=== PATIENT | female | born 1955 | race Caucasian/White ===

== ENCOUNTER 2022-10-04 09:25 | Inpatient (IN) ==
[~2022-10-04 09:25] MED LIST: KCL IV SCH; MAGNESIUM SULFATE IV SCH; NS IV SCH
[2022-10-04] MEDS ORDERED: Magnesium Sulfate 2 gm BAG 0 GM/0 ML BAG ONE (10:41)
[2022-10-04] MEDS ORDERED: NS 0.9% w/ 20 Meq KCL 1000 ml 1,000 ML ONE (10:41)
[2022-10-04] MEDS ORDERED: Magnesium Sulfate IV 0.5 GM/ML 2 ml VIAL (1 gm) ONE (10:46)
[2022-10-04] MEDS ORDERED: Ondansetron 4 mg VIAL 2 MG/ML 2 ml VIAL IV PRN (11:25)
[2022-10-04] MEDS ORDERED: Piperacillin/Tazobac 3.375 BAG 3.375 GM/100 ML BAG IV ONE (11:37)
[2022-10-04 11:49] LABS: Albumin 3.1 g/dL (3.2-5.2); Albumin/Globulin Ratio 1.1 (1-3); Calcium 7.7 mg/dL (8.6-10.3); Creatinine, Serum 0.73 mg/dL (0.51-0.95); Globulin 2.7 g/dL (2-4); Potassium 3.1 mmol/L (3.5-5.0); Total Bilirubin 1.1 mg/dL (0.2-1.0); Total Protein 5.8 g/dL (6.4-8.9); eGFR CKD-EPI 91.2 (>60)
[2022-10-04] MEDS ORDERED: Zosyn per Pharmacy NOTE FOLLOW UP SCH (12:00)
[2022-10-04 12:13] LABS: ABS Lymphocytes 0.1 10^3/uL (1.0-4.8); ABS Monocytes 0.1 10^3/uL (0.0-0.9); Eosinophil % 0.7 %; Hematocrit 22.7 % (35-45); Hemoglobin 8.2 g/dL (11.5-14.3); Lymphocyte % 44.6 %; Mean Corpuscular Hemoglobin 30.6 pg (27-33); Mean Corpuscular Hgb Conc 36.4 g/dL (31-36); Mean Corpuscular Volume 84.1 fL (80-97); Mean Platelet Volume 8.2 fL (7.5-11.2); Platelet Count 24 10^3/uL (150-450); Red Cell Distribution Width 15.5 % (12-17); White Blood Count 0.2 10^3/uL (3.8-11.8)
[2022-10-04] MEDS ORDERED: Morphine 2 MG/ML SYRINGE ONE (13:14)
[2022-10-04 13:15] LABS: Magnesium 1.8 mg/dL (1.9-2.7)
[2022-10-04] MEDS ORDERED: Famotidine IV 10 MG/ML 2 ml VIAL (20 mg) ONE (13:15)
[2022-10-04 14:28] LABS: Urine Appearance Cloudy; Urine Bilirubin Negative (Negative); Urine Blood Negative (Negative); Urine Color Yellow; Urine Glucose Negative (Negative); Urine Ketones Negative (Negative); Urine Nitrite Negative (Negative); Urine Protein 1+(30 mg/dL) (Negative); Urine Specific Gravity 1.014 (1.002-1.030); Urine Urobilinogen Negative (Negative)
[2022-10-04 14:37] LABS: Urine Bacteria Absent (Absent); Urine Red Blood Cell 1+(3-5/hpf) (Absent); Urine White Blood Cell 2+(11-20/hpf) (Absent)
[2022-10-04] MEDS: NS 0.9% 1000 ml BAG 1,000 ML IV SCH (16:21)
[2022-10-04] MEDS: Sucralfate 1 gm SUSP 1 GM/10 ML UDC PO SCH ×2 (16:56→20:18)
[2022-10-04] MEDS: ZOSYN 3.375 GM Q8H per EXTENDED INFUSION IV SCH (17:31)
[2022-10-04] MEDS ORDERED: Iohexol 350 (CONTRAST) 500 ML MDV IV ONE (19:42)
[2022-10-04] MEDS: Morphine 2 MG/ML SYRINGE IV PRN ×2 (20:05→22:28)
[2022-10-05] MEDS: ZOSYN 3.375 GM Q8H per EXTENDED INFUSION IV SCH ×3 (01:38→17:15)
[2022-10-05] MEDS: Morphine 2 MG/ML SYRINGE IV PRN ×5 (01:53→21:47)
[2022-10-05] MEDS: NS 0.9% 1000 ml BAG 1,000 ML IV SCH ×2 (05:49→14:32)
[2022-10-05 06:36] LABS: Albumin 2.8 g/dL (3.2-5.2); Albumin/Globulin Ratio 1.3 (1-3); Calcium 7.2 mg/dL (8.6-10.3); Creatinine, Serum 0.68 mg/dL (0.51-0.95); Globulin 2.1 g/dL (2-4); Potassium 3.1 mmol/L (3.5-5.0); Total Bilirubin 0.8 mg/dL (0.2-1.0); Total Protein 4.9 g/dL (6.4-8.9); eGFR CKD-EPI 96.6 (>60)
[2022-10-05 06:50] LABS: Hematocrit 18.6 % (35-45); Hemoglobin 6.9 g/dL (11.5-14.3); Mean Corpuscular Hemoglobin 30.6 pg (27-33); Mean Corpuscular Hgb Conc 36.8 g/dL (31-36); Mean Corpuscular Volume 83.2 fL (80-97); Mean Platelet Volume 7.6 fL (7.5-11.2); Platelet Count 15 10^3/uL (150-450); Red Blood Count 2.24 10^6/uL (3.63-4.92); Red Cell Distribution Width 15.6 % (12-17); White Blood Count 0.4 10^3/uL (3.8-11.8)
[2022-10-05 07:53] LABS: ABS Lymphocytes 0.2 10^3/uL (1.0-4.8); ABS Monocytes 0.1 10^3/uL (0.0-0.9); ABS Neutrophils 0.1 10^3/uL (1.5-7.6); Eosinophil % 1.7 %; Lymphocyte % 40.3 %
[2022-10-05] MEDS: Sucralfate 1 gm SUSP 1 GM/10 ML UDC PO SCH ×4 (09:20→22:35)
[2022-10-05] MEDS ORDERED: NS 0.9% 1000 ml BAG 1,000 ML IV SCH ×2 (10:55→11:00)
[2022-10-05] MEDS: Diphenoxylat/Atrop 2.5-0.025mg TAB PO SCH ×4 (11:26→22:43)
[2022-10-05] MEDS: KCL 20 MEQ/100 ML IVPREMIX 20 MEQ/100 ML BAG IV SCH ×2 (11:47→14:33)
[2022-10-05] MEDS: Silver Sulfadiazine 1% 20 gm TUBE TOPICAL SCH ×2 (14:49→21:29)
[2022-10-05 22:38] LABS: Hematocrit 20.6 % (35-45); Hemoglobin 7.5 g/dL (11.5-14.3); Mean Corpuscular Hemoglobin 30.3 pg (27-33); Mean Corpuscular Hgb Conc 36.2 g/dL (31-36); Mean Corpuscular Volume 83.5 fL (80-97); Mean Platelet Volume 8.1 fL (7.5-11.2); Platelet Count 14 10^3/uL (150-450); Red Blood Count 2.47 10^6/uL (3.63-4.92); Red Cell Distribution Width 15.3 % (12-17); White Blood Count 0.7 10^3/uL (3.8-11.8)
[2022-10-05 22:50] LABS: Albumin 2.7 g/dL (3.2-5.2); Albumin/Globulin Ratio 1.2 (1-3); Calcium 7.2 mg/dL (8.6-10.3); Creatinine, Serum 0.59 mg/dL (0.51-0.95); Globulin 2.2 g/dL (2-4); Potassium 3.1 mmol/L (3.5-5.0); Total Bilirubin 1.2 mg/dL (0.2-1.0); Total Protein 4.9 g/dL (6.4-8.9)
[2022-10-05 23:00] LABS: ABS Lymphocytes 0.1 10^3/uL (1.0-4.8); ABS Monocytes 0.1 10^3/uL (0.0-0.9); ABS Neutrophils 0.4 10^3/uL (1.5-7.6); Eosinophil % 0.6 %; Lymphocyte % 19.7 %; Nucleated Red Blood Cells % 0.7 /100 WBC (0.0-0.4)
[2022-10-06] MEDS: ZOSYN 3.375 GM Q8H per EXTENDED INFUSION IV SCH ×3 (01:30→18:26)
[2022-10-06] MEDS: NS 0.9% 1000 ml BAG 1,000 ML IV SCH ×3 (01:31→21:44)
[2022-10-06] MEDS: Diphenoxylat/Atrop 2.5-0.025mg TAB PO SCH ×5 (03:00→21:15)
[2022-10-06] MEDS: Morphine 2 MG/ML SYRINGE IV PRN ×4 (05:30→21:26)
[2022-10-06 05:59] LABS: Hematocrit 19.9 % (35-45); Hemoglobin 7.2 g/dL (11.5-14.3); Mean Corpuscular Hemoglobin 30.8 pg (27-33); Mean Corpuscular Hgb Conc 36.4 g/dL (31-36); Mean Corpuscular Volume 84.6 fL (80-97); Mean Platelet Volume 8.5 fL (7.5-11.2); Platelet Count 13 10^3/uL (150-450); Red Blood Count 2.35 10^6/uL (3.63-4.92); Red Cell Distribution Width 15.9 % (12-17)
[2022-10-06 06:09] LABS: Albumin 2.5 g/dL (3.2-5.2); Albumin/Globulin Ratio 1.1 (1-3); C Reactive Protein 122.24 mg/L (<8.01); Calcium 6.9 mg/dL (8.6-10.3); Creatinine, Serum 0.59 mg/dL (0.51-0.95); Globulin 2.2 g/dL (2-4); Magnesium 1.8 mg/dL (1.9-2.7); Total Bilirubin 0.9 mg/dL (0.2-1.0); Total Protein 4.7 g/dL (6.4-8.9)
[2022-10-06 06:52] LABS: Anisocytosis 1+
[2022-10-06 06:53] LABS: ABS Lymphocytes 0.2 10^3/uL (1.0-4.8); ABS Monocytes 0.2 10^3/uL (0.0-0.9); ABS Neutrophils 0.6 10^3/uL (1.5-7.6); Lymphocyte % 16.3 %; Nucleated Red Blood Cells % 0.1 /100 WBC (0.0-0.4)
[2022-10-06] MEDS ORDERED: Magnesium Sulfate IV 1GM/100ML 1 GM/100 ML BAG IV ONE (07:12)
[2022-10-06] MEDS: Silver Sulfadiazine 1% 20 gm TUBE TOPICAL SCH ×2 (07:48→21:25)
[2022-10-06] MEDS: KCL 20 MEQ/100 ML IVPREMIX 20 MEQ/100 ML BAG IV SCH ×4 (07:50→14:09)
[2022-10-06] MEDS: Sucralfate 1 gm SUSP 1 GM/10 ML UDC PO SCH ×4 (07:50→21:16)
[2022-10-06] MEDS: Lidocaine 2% JELLY 6 ML Topical TOPICAL PRN (14:14)
[2022-10-06] MEDS ORDERED: Ondansetron 4 mg VIAL 2 MG/ML 2 ml VIAL IV PRN (15:11)
[2022-10-07] MEDS: ZOSYN 3.375 GM Q8H per EXTENDED INFUSION IV SCH ×3 (01:04→17:47)
[2022-10-07] MEDS: Morphine 2 MG/ML SYRINGE IV PRN ×6 (01:04→23:52)
[2022-10-07] MEDS: Diphenoxylat/Atrop 2.5-0.025mg TAB PO SCH ×7 (04:08→23:34)
[2022-10-07] MEDS: NS 0.9% 1000 ml BAG 1,000 ML IV SCH ×2 (07:52→17:56)
[2022-10-07] MEDS: Sucralfate 1 gm SUSP 1 GM/10 ML UDC PO SCH ×4 (08:21→20:12)
[2022-10-07 08:42] LABS: Hematocrit 22.2 % (35-45); Hemoglobin 8.1 g/dL (11.5-14.3); Mean Corpuscular Hemoglobin 30.5 pg (27-33); Mean Corpuscular Hgb Conc 36.4 g/dL (31-36); Mean Platelet Volume 8.6 fL (7.5-11.2); Platelet Count 15 10^3/uL (150-450); Red Blood Count 2.64 10^6/uL (3.63-4.92); White Blood Count 1.9 10^3/uL (3.8-11.8)
[2022-10-07 08:45] LABS: Albumin 2.5 g/dL (3.2-5.2); Calcium 7.3 mg/dL (8.6-10.3); Creatinine, Serum 0.6 mg/dL (0.51-0.95); Globulin 2.5 g/dL (2-4); Magnesium 1.9 mg/dL (1.9-2.7); Potassium 3.3 mmol/L (3.5-5.0); Total Bilirubin 0.7 mg/dL (0.2-1.0); eGFR CKD-EPI 99.5 (>60)
[2022-10-07] MEDS ORDERED: Potassium EFFERVES 25 meq TAB PO ONE (09:08)
[2022-10-07] MEDS ORDERED: Magnesium Sulfate IV 1GM/100ML 1 GM/100 ML BAG IV ONE (09:08)
[2022-10-07] MEDS: Silver Sulfadiazine 1% 20 gm TUBE TOPICAL SCH ×2 (09:14→20:12)
[2022-10-07 09:50] LABS: ABS Lymphocytes 0.3 10^3/uL (1.0-4.8); ABS Monocytes 0.2 10^3/uL (0.0-0.9); ABS Neutrophils 1.4 10^3/uL (1.5-7.6); Eosinophil % 0.6 %; Lymphocyte % 14.4 %; Nucleated Red Blood Cells % 0.2 /100 WBC (0.0-0.4); RBC Morphology Normal (Normal)
[2022-10-07] MEDS ORDERED: Psyllium PAK PO PRN (18:11)
[2022-10-07] MEDS ORDERED: Psyllium PAK PO SCH (19:00)
[2022-10-07] MEDS: Lidocaine 2% JELLY 6 ML Topical TOPICAL PRN (23:35)
[2022-10-08] MEDS: ZOSYN 3.375 GM Q8H per EXTENDED INFUSION IV SCH ×3 (02:02→18:02)
[2022-10-08] MEDS: Morphine 2 MG/ML SYRINGE IV PRN ×3 (04:12→21:48)
[2022-10-08] MEDS: NS 0.9% 1000 ml BAG 1,000 ML IV SCH ×2 (04:13→14:39)
[2022-10-08] MEDS: Diphenoxylat/Atrop 2.5-0.025mg TAB PO SCH ×5 (04:25→19:55)
[2022-10-08 06:47] LABS: Hemoglobin 7.2 g/dL (11.5-14.3); Mean Corpuscular Hemoglobin 30.7 pg (27-33); Mean Corpuscular Hgb Conc 36.1 g/dL (31-36); Mean Corpuscular Volume 85.2 fL (80-97); Mean Platelet Volume 8.2 fL (7.5-11.2); Platelet Count 13 10^3/uL (150-450); Red Blood Count 2.35 10^6/uL (3.63-4.92); Red Cell Distribution Width 16.5 % (12-17); White Blood Count 2.5 10^3/uL (3.8-11.8)
[2022-10-08 06:57] LABS: Calcium 7.1 mg/dL (8.6-10.3); Creatinine, Serum 0.56 mg/dL (0.51-0.95); Magnesium 1.9 mg/dL (1.9-2.7); Potassium 3.4 mmol/L (3.5-5.0); eGFR CKD-EPI 101.2 (>60)
[2022-10-08 08:15] LABS: RBC Morphology Normal (Normal)
[2022-10-08 08:16] LABS: ABS Lymphocytes 0.3 10^3/uL (1.0-4.8); ABS Monocytes 0.3 10^3/uL (0.0-0.9); ABS Nucleated RBC 0.01 10^3/ul; Eosinophil % 0.4 %; Nucleated Red Blood Cells % 0.3 /100 WBC (0.0-0.4)
[2022-10-08] MEDS: Sucralfate 1 gm SUSP 1 GM/10 ML UDC PO SCH ×4 (09:56→21:54)
[2022-10-08] MEDS: Silver Sulfadiazine 1% 20 gm TUBE TOPICAL SCH ×2 (09:57→21:54)
[2022-10-08] MEDS ORDERED: Magic MouthWash1-BEN/MAAL/LIDO 180 ML BTL SWISH SPIT PRN (14:16)
[2022-10-08] MEDS ORDERED: Magic MW-DIPH/MAG-AL-SIME/LIDO FIRST BLM KIT SWISH SPIT PRN (14:24)
[2022-10-08] MEDS: Lidocaine 2% JELLY 6 ML Topical TOPICAL PRN ×2 (15:28→21:51)
[2022-10-09] MEDS: NS 0.9% 1000 ml BAG 1,000 ML IV SCH (00:53)
[2022-10-09] MEDS: ZOSYN 3.375 GM Q8H per EXTENDED INFUSION IV SCH ×3 (00:53→17:57)
[2022-10-09] MEDS: Diphenoxylat/Atrop 2.5-0.025mg TAB PO SCH ×7 (00:54→21:16)
[2022-10-09] MEDS: Morphine 2 MG/ML SYRINGE IV PRN ×3 (05:43→18:09)
[2022-10-09 06:34] LABS: Hematocrit 20.3 % (35-45); Hemoglobin 7.3 g/dL (11.5-14.3); Mean Corpuscular Hemoglobin 30.7 pg (27-33); Mean Corpuscular Volume 85.3 fL (80-97); Mean Platelet Volume 8.5 fL (7.5-11.2); Platelet Count 13 10^3/uL (150-450); Red Blood Count 2.38 10^6/uL (3.63-4.92); Red Cell Distribution Width 16.6 % (12-17); White Blood Count 2.6 10^3/uL (3.8-11.8)
[2022-10-09 06:42] LABS: Calcium 7.2 mg/dL (8.6-10.3); Creatinine, Serum 0.64 mg/dL (0.51-0.95)
[2022-10-09 06:54] LABS: Anisocytosis 1+; Hypochromasia 1+; Polychromasia 1+
[2022-10-09 06:55] LABS: ABS Lymphocytes 0.3 10^3/uL (1.0-4.8); ABS Monocytes 0.3 10^3/uL (0.0-0.9); ABS Nucleated RBC 0.01 10^3/ul; Eosinophil % 0.5 %; Lymphocyte % 10.7 %; Nucleated Red Blood Cells % 0.3 /100 WBC (0.0-0.4)
[2022-10-09] MEDS ORDERED: Potassium Chloride LIQUID 20 MEQ/15 ML LIQUID PO ONE ×2 (07:21→13:00)
[2022-10-09] MEDS: Sucralfate 1 gm SUSP 1 GM/10 ML UDC PO SCH ×4 (09:02→21:29)
[2022-10-09] MEDS: Lidocaine 2% JELLY 6 ML Topical TOPICAL PRN (09:54)
[2022-10-09] MEDS: Silver Sulfadiazine 1% 20 gm TUBE TOPICAL SCH ×2 (12:03→21:30)
[2022-10-10] MEDS: Diphenoxylat/Atrop 2.5-0.025mg TAB PO SCH ×2 (02:50→05:43)
[2022-10-10 05:53] LABS: Hematocrit 19.9 % (35-45); Hemoglobin 7.2 g/dL (11.5-14.3); Mean Corpuscular Hemoglobin 30.6 pg (27-33); Mean Corpuscular Hgb Conc 36.1 g/dL (31-36); Mean Platelet Volume 8.3 fL (7.5-11.2); Platelet Count 15 10^3/uL (150-450); Red Blood Count 2.34 10^6/uL (3.63-4.92); Red Cell Distribution Width 16.1 % (12-17); White Blood Count 3.9 10^3/uL (3.8-11.8)
[2022-10-10 06:00] LABS: Calcium 7.8 mg/dL (8.6-10.3); Creatinine, Serum 0.53 mg/dL (0.51-0.95); Magnesium 1.8 mg/dL (1.9-2.7); Potassium 3.4 mmol/L (3.5-5.0); eGFR CKD-EPI 102.6 (>60)
[2022-10-10] MEDS ORDERED: Potassium Chloride LIQUID 20 MEQ/15 ML LIQUID PO ONE (07:12)
[2022-10-10] MEDS ORDERED: Magnesium Sulfate IV 1GM/100ML 1 GM/100 ML BAG IV ONE (07:12)
[2022-10-10 08:33] LABS: RBC Morphology Normal (Normal)
[2022-10-10 08:34] LABS: ABS Lymphocytes 0.5 10^3/uL (1.0-4.8); ABS Monocytes 0.4 10^3/uL (0.0-0.9); ABS Nucleated RBC 0.01 10^3/ul; Eosinophil % 0.2 %; Lymphocyte % 11.7 %; Nucleated Red Blood Cells % 0.2 /100 WBC (0.0-0.4)
[2022-10-10] MEDS ORDERED: Diphenoxylat/Atrop 2.5-0.025mg TAB PO PRN (08:59)
[2022-10-10] MEDS: Sucralfate 1 gm SUSP 1 GM/10 ML UDC PO SCH ×2 (09:11→11:08)
[2022-10-10] MEDS: Silver Sulfadiazine 1% 20 gm TUBE TOPICAL SCH (09:12)
[2022-10-10] MEDS ORDERED: HYDROcodone/ACETAMIN 5/325 mg TAB PO PRN (09:58)
[2022-10-10 14:38] VITALS: BP 112/72
== END 2022-10-10 15:30 | disposition home or self-care (01) | DRG 463 ==
LOC: CHOAEAST 09:25 → CHOA 09:25 → MED 14:26 → SUATTDRO 14:26
PROVIDERS: ADMIT Internal Medicine Hematology & Oncology; ATTEND Hospitalist